=== PATIENT | male | born 1965 | race Caucasian/White ===

== ENCOUNTER 2021-05-01 23:00 | Observation (INO) ==
[2021-05-01] MEDS ORDERED: Lactated Ringers 1000 ml BAG 1,000 ML IV ONE (23:52)
[2021-05-02 00:13] LABS: ABS Eosinophils 0.1 10^3/ul (0-0.6); ABS Lymphocytes 0.7 10^3/ul (1.0-4.8); ABS Monocytes 0.3 10^3/ul (0-0.8); ABS Neutrophils 3.4 10^3/ul (1.5-7.7); Eosinophil % 2.6 %; Hematocrit 41 % (42-52); Hemoglobin 14.1 g/dL (14.0-18.0); Lymphocyte % 15.3 %; Mean Corpuscular HGB Conc 35 g/dL (31-36); Mean Corpuscular Hemoglobin 32 pg (27-31); Mean Corpuscular Volume 91 fL (80-94); Mean Platelet Volume 7.8 fL (7.4-10.4); Nucleated Red Blood Cells % 0.1; Platelet Count 187 10^3/uL (150-450); Red Blood Count 4.47 10^6 /uL (4.18-5.48); Red Cell Distribution Width 13 % (10-15); White Blood Count 4.5 10^3/uL (3.5-10.8)
[2021-05-02 00:30] LABS: Albumin/Globulin Ratio 2.2 (1-3); Calcium 8.8 mg/dL (8.6-10.3); Globulin 1.8 g/dL (2-4); Potassium 3.8 mmol/L (3.5-5.0); Total Bilirubin 0.5 mg/dL (0.2-1.0); Total Protein 5.8 g/dL (6.4-8.9); eGFR CKD-EPI 97.6 (>60)
[2021-05-02] MEDS ORDERED: LORazepam 2 mg VIAL 1 ml IV PUSH ONE (00:52)
[2021-05-02] MEDS ORDERED: Lorazepam PYXIS KEY PRN (00:52)
[2021-05-02 01:12] LABS: TSH Ultra Thyroid Stim Horm 1.53 mcIU/mL (0.34-5.60)
[2021-05-02 01:14] LABS: Free T4 0.72 ng/dL (0.61-1.12)
[2021-05-02 02:34] LABS: Urine Appearance Clear; Urine Bilirubin Negative (Negative); Urine Blood Negative (Negative); Urine Color Amber; Urine Glucose Negative (Negative); Urine Ketones Negative (Negative); Urine Nitrite Negative (Negative); Urine Protein Negative (Negative); Urine Specific Gravity 1.006 (1.002-1.030); Urine Urobilinogen Negative (Negative)
[2021-05-02 02:41] LABS: Rapid COVID-19 Molecular Undetected (Undetected)
[2021-05-02] MEDS: Enoxaparin 40 MG/0.4 ML SYR SUBCUT SCH (04:27)
[2021-05-02] MEDS: Carbidopa/Levodop 25/100 MG TAB PO SCH ×4 (09:29→20:53)
[2021-05-02] MEDS: ENTACAPONE 200 MG PO SCH ×4 (11:24→20:53)
[2021-05-03] MEDS: ENTACAPONE 200 MG PO SCH ×6 (01:27→21:45)
[2021-05-03] MEDS: Enoxaparin 40 MG/0.4 ML SYR SUBCUT SCH (04:19)
[2021-05-03 06:09] LABS: ABS Eosinophils 0.1 10^3/ul (0-0.6); ABS Lymphocytes 0.8 10^3/ul (1.0-4.8); ABS Monocytes 0.3 10^3/ul (0-0.8); ABS Neutrophils 4.5 10^3/ul (1.5-7.7); Eosinophil % 1.6 %; Hematocrit 45 % (42-52); Hemoglobin 15.6 g/dL (14.0-18.0); Lymphocyte % 13.6 %; Mean Corpuscular HGB Conc 35 g/dL (31-36); Mean Corpuscular Hemoglobin 32 pg (27-31); Mean Corpuscular Volume 91 fL (80-94); Platelet Count 199 10^3/uL (150-450); Red Blood Count 4.96 10^6 /uL (4.18-5.48); Red Cell Distribution Width 13 % (10-15); White Blood Count 5.6 10^3/uL (3.5-10.8)
[2021-05-03 06:29] LABS: Calcium 9.4 mg/dL (8.6-10.3); Potassium 3.8 mmol/L (3.5-5.0); eGFR CKD-EPI 103.5 (>60)
[2021-05-03] MEDS: Carbidopa/Levodop 25/100 MG TAB PO SCH ×4 (09:33→21:45)
[2021-05-04] MEDS: Carbidopa/Levodop 25/100 MG TAB PO SCH ×4 (00:46→13:29)
[2021-05-04] MEDS: ENTACAPONE 200 MG PO SCH ×4 (00:46→13:29)
[2021-05-04] MEDS ORDERED: Enoxaparin 40 MG/0.4 ML SYR SUBCUT SCH (01:00)
[2021-05-04] MEDS ORDERED: NS 0.9% 500 ml BAG 500 ML IV SCH (02:00)
[2021-05-04 12:12] LABS: Vitamin D Total 25(OH) 19.9 ng/mL (20-50)
[2021-05-04 12:13] VITALS: BP 113/71
[2021-05-04] MEDS ORDERED: Carbidopa/Levodop CR 50/200 TAB.CR PO SCH (21:00)
== END 2021-05-04 15:10 | disposition home or self-care (01) ==
LOC: ED 23:00 → EDHOLD 23:00 → SUATTDRO 05-02 03:58 → MEDTELE 05-02 13:44
PROVIDERS: ADMIT Internal Medicine; ATTEND Internal Medicine

== ENCOUNTER 2022-07-31 10:43 | Observation (INO) ==
[2022-07-31] MEDS ORDERED: NS 0.9% 1000 ml BAG 1,000 ML IV ONE (11:26)
[2022-07-31] MEDS ORDERED: LORazepam 2 mg VIAL 1 ml ONE (11:44)
[2022-07-31] MEDS ORDERED: LORazepam 2 mg VIAL 1 ml IM ONE (11:52)
[2022-07-31 13:06] LABS: Urine Appearance Clear; Urine Bilirubin Negative (Negative); Urine Blood Negative (Negative); Urine Color Amber; Urine Glucose Negative (Negative); Urine Ketones Trace (Negative); Urine Nitrite Negative (Negative); Urine Protein Negative (Negative); Urine Specific Gravity 1.012 (1.002-1.030); Urine Urobilinogen Negative (Negative)
[2022-07-31 13:07] LABS: ABS Lymphocytes 0.5 10^3/ul (1.0-4.8); ABS Monocytes 0.5 10^3/ul (0-0.8); ABS Neutrophils 7.9 10^3/ul (1.5-7.7); Eosinophil % 0.2 %; Hematocrit 42 % (42-52); Hemoglobin 14.4 g/dL (14.0-18.0); Lymphocyte % 5.5 %; Mean Corpuscular HGB Conc 34 g/dL (31-36); Mean Corpuscular Hemoglobin 31 pg (27-31); Mean Corpuscular Volume 92 fL (80-94); Mean Platelet Volume 8.1 fL (7.4-10.4); Platelet Count 166 10^3/uL (150-450); Red Blood Count 4.59 10^6 /uL (4.18-5.48); Red Cell Distribution Width 13 % (10-15); White Blood Count 8.9 10^3/uL (3.5-10.8)
[2022-07-31 13:21] LABS: Urine Benzodiazepine Screen Presumptive Positive (None Detect); Urine Buprenorphine Screen None Detected (None Detect); Urine Cannabinoids Screen Presumptive Positive (None Detect); Urine Fentanyl Screen None Detected (None Detect); Urine Hydrocodone Screen None Detected (None Detect); Urine Opiates Screen None Detected (None Detect)
[2022-07-31 13:44] LABS: ALT 6 U/L (7-52); AST 55 U/L (13-39); Albumin 4.4 g/dL (3.2-5.2); Albumin/Globulin Ratio 2.4 (1-3); Alcohol, S < 13 mg/dL (<13); Alkaline Phosphatase 56 U/L (35-149); Anion Gap 4 mmol/L (2-11); Blood Urea Nitrogen 14 mg/dL (6-24); CO2 Carbon Dioxide 30 mmol/L (22-32); Chloride 104 mmol/L (101-111); Creatine Kinase 1798 U/L (10-223); Creatinine, Serum 0.89 mg/dL (0.67-1.17); Globulin 1.8 g/dL (2-4); Glucose 105 mg/dL (70-100); Lipase 14 U/L (11.0-82.0); Potassium 3.7 mmol/L (3.5-5.0); Salicylate < 2.50 mg/dL (<30); Sodium 138 mmol/L (135-145); Total Protein 6.2 g/dL (6.4-8.9)
[2022-07-31 13:49] LABS: TSH Ultra Thyroid Stim Horm 3.49 mcIU/mL (0.34-5.60)
[2022-07-31 13:51] LABS: Acetaminophen < 15 mcg/mL
[2022-07-31] MEDS ORDERED: ENTACAPONE 200 MG PO ONE (14:01)
[2022-07-31] MEDS ORDERED: Carbidopa/Levodop 25/100 MG TAB PO ONE (14:01)
[2022-07-31] MEDS ORDERED: Senna TAB 8.6 mg TAB PO PRN ×2 (15:46→16:01)
[2022-07-31] MEDS ORDERED: Carbidopa/Levodop 25/100 MG TAB PO SCH (18:00)
[2022-07-31] MEDS: Enoxaparin 40 MG/0.4 ML SYR SUBCUT SCH (18:12)
[2022-07-31] MEDS ORDERED: Carbidopa/Levodopa ODT (NF) 25/100 ODT PO SCH (19:00)
[2022-07-31] MEDS ORDERED: Carbidopa/Levodopa ODT (NF) 25/100 ODT SL SCH ×2 (19:17→19:18)
[2022-07-31] MEDS: Carbidopa/Levodop CR 50/200 TAB.CR PO SCH (22:29)
[2022-08-01] MEDS: Carbidopa/Levodopa ODT (NF) 25/100 ODT SL SCH ×6 (01:34→21:37)
[2022-08-01 07:06] LABS: ABS Eosinophils 0.1 10^3/ul (0-0.6); ABS Lymphocytes 0.6 10^3/ul (1.0-4.8); ABS Monocytes 0.4 10^3/ul (0-0.8); ABS Neutrophils 3.1 10^3/ul (1.5-7.7); Eosinophil % 2.1 %; Hematocrit 42 % (42-52); Hemoglobin 14.3 g/dL (14.0-18.0); Lymphocyte % 14.3 %; Mean Corpuscular HGB Conc 34 g/dL (31-36); Mean Corpuscular Hemoglobin 32 pg (27-31); Mean Corpuscular Volume 93 fL (80-94); Mean Platelet Volume 8.4 fL (7.4-10.4); Platelet Count 159 10^3/uL (150-450); Red Blood Count 4.51 10^6 /uL (4.18-5.48); Red Cell Distribution Width 13 % (10-15); White Blood Count 4.1 10^3/uL (3.5-10.8)
[2022-08-01 07:19] LABS: Calcium 8.4 mg/dL (8.6-10.3); Potassium 3.8 mmol/L (3.5-5.0)
[2022-08-01 07:25] LABS: Creatinine, Serum 0.81 mg/dL (0.67-1.17); eGFR CKD-EPI 102.8 (>60)
[2022-08-01] MEDS: Carbidopa/Levodop CR 50/200 TAB.CR PO SCH ×2 (10:03→21:32)
[2022-08-01 11:19] LABS: Urine Appearance Clear; Urine Bilirubin Negative (Negative); Urine Blood Negative (Negative); Urine Color Amber; Urine Glucose Negative (Negative); Urine Ketones Trace (Negative); Urine Nitrite Negative (Negative); Urine Protein Negative (Negative); Urine Specific Gravity 1.018 (1.002-1.030); Urine Urobilinogen Negative (Negative)
[2022-08-01 16:43] LABS: Albumin 3.8 g/dL (3.2-5.2); Albumin/Globulin Ratio 2.5 (1-3); Direct Bilirubin 0.2 mg/dL (0.03-0.18); Globulin 1.5 g/dL (2-4); Indirect Bilirubin 0.6 mg/dL (0.3-1.0); Total Bilirubin 0.8 mg/dL (0.2-1.0); Total Protein 5.3 g/dL (6.4-8.9)
[2022-08-01] MEDS: Enoxaparin 40 MG/0.4 ML SYR SUBCUT SCH (16:58)
[2022-08-01] MEDS ORDERED: Enoxaparin 80 MG/0.8 ML SYR SUBCUT SCH (17:00)
[2022-08-01] MEDS ORDERED: Heparin DRIP 25,000 UNITS BAG 25,000 UNITS/500 ML BAG IV SCH (17:00)
[2022-08-01 17:19] LABS: ABS Eosinophils 0.1 10^3/ul (0-0.6); ABS Lymphocytes 0.7 10^3/ul (1.0-4.8); ABS Monocytes 0.3 10^3/ul (0-0.8); ABS Neutrophils 3.7 10^3/ul (1.5-7.7); Hematocrit 46 % (42-52); Hemoglobin 15.5 g/dL (14.0-18.0); Lymphocyte % 14.2 %; Mean Corpuscular HGB Conc 34 g/dL (31-36); Mean Corpuscular Hemoglobin 31 pg (27-31); Mean Corpuscular Volume 93 fL (80-94); Mean Platelet Volume 7.8 fL (7.4-10.4); Nucleated Red Blood Cells % 0.1; Platelet Count 166 10^3/uL (150-450); Red Blood Count 4.96 10^6 /uL (4.18-5.48); Red Cell Distribution Width 14 % (10-15); White Blood Count 4.9 10^3/uL (3.5-10.8)
[2022-08-01 17:44] LABS: Creatinine, Serum 0.82 mg/dL (0.67-1.17); eGFR CKD-EPI 102.5 (>60)
[2022-08-02] MEDS: Carbidopa/Levodopa ODT (NF) 25/100 ODT SL SCH ×4 (01:48→13:32)
[2022-08-02 06:16] LABS: ABS Eosinophils 0.2 10^3/ul (0-0.6); ABS Monocytes 0.4 10^3/ul (0-0.8); ABS Neutrophils 3.4 10^3/ul (1.5-7.7); Eosinophil % 3.7 %; Hematocrit 48 % (42-52); Hemoglobin 16.4 g/dL (14.0-18.0); Lymphocyte % 19.5 %; Mean Corpuscular HGB Conc 34 g/dL (31-36); Mean Corpuscular Hemoglobin 32 pg (27-31); Mean Corpuscular Volume 93 fL (80-94); Mean Platelet Volume 8.4 fL (7.4-10.4); Platelet Count 177 10^3/uL (150-450); Red Blood Count 5.17 10^6 /uL (4.18-5.48); Red Cell Distribution Width 14 % (10-15); White Blood Count 4.9 10^3/uL (3.5-10.8)
[2022-08-02 06:34] LABS: Calcium 8.7 mg/dL (8.6-10.3); Creatinine, Serum 0.88 mg/dL (0.67-1.17); Magnesium 1.9 mg/dL (1.9-2.7); eGFR CKD-EPI 100.3 (>60)
[2022-08-02] MEDS ORDERED: Magnesium Sulfate 2 gm BAG 2 GM/50 ML BAG IVPB ONE (07:45)
[2022-08-02] MEDS: Carbidopa/Levodop CR 50/200 TAB.CR PO SCH (08:31)
[2022-08-02 11:21] VITALS: BP 93/62
== END 2022-08-02 15:00 | disposition home or self-care (01) ==
LOC: EDHOLD 10:43 → ED 10:43 → SUATTDRO 15:46 → MEDTELE 20:58
PROVIDERS: ADMIT Internal Medicine; ATTEND Hospitalist

== ENCOUNTER 2022-12-03 03:47 | Inpatient (IN) ==
[2022-12-03 04:40] LABS: ABS Basophils 0.1 10^3/uL (0.0-0.1); ABS Eosinophils 0.1 10^3/uL (0.0-0.5); ABS Lymphocytes 0.8 10^3/uL (1.0-4.8); ABS Monocytes 0.5 10^3/uL (0.0-1.1); ABS Neutrophils 6.2 10^3/uL (1.5-7.6); Eosinophil % 1.3 %; Hematocrit 42.3 % (38-53); Hemoglobin 14.8 g/dL (13.2-16.3); Lymphocyte % 10.2 %; Mean Corpuscular Hemoglobin 31.5 pg (27-33); Mean Corpuscular Hgb Conc 35.1 g/dL (31-36); Mean Corpuscular Volume 89.9 fL (80-97); Mean Platelet Volume 7.5 fL (7.5-11.2); Nucleated Red Blood Cells % 0.1 /100 WBC (0.0-0.4); Platelet Count 191 10^3/uL (150-450); Red Blood Count 4.71 10^6/uL (4.06-5.63); Red Cell Distribution Width 13.4 % (12-17); White Blood Count 7.6 10^3/uL (3.6-10.2)
[2022-12-03 05:16] LABS: ALT 4 U/L (7-52); AST 27 U/L (13-39); Albumin 4.3 g/dL (3.2-5.2); Albumin/Globulin Ratio 1.9 (1-3); Alkaline Phosphatase 66 U/L (35-149); Anion Gap 6 mmol/L (2-16); Blood Urea Nitrogen 15 mg/dL (6-24); CO2 Carbon Dioxide 26 mmol/L (22-32); Calcium 8.9 mg/dL (8.6-10.3); Chloride 105 mmol/L (101-111); Creatinine, Serum 0.96 mg/dL (0.67-1.17); Globulin 2.3 g/dL (2-4); Glucose 113 mg/dL (70-100); Potassium 3.4 mmol/L (3.5-5.0); Sodium 137 mmol/L (135-145); Total Protein 6.6 g/dL (6.4-8.9); eGFR CKD-EPI 91.6 (>60)
[2022-12-03 05:43] LABS: Acetaminophen < 15 mcg/mL; Alcohol, S < 13 mg/dL (<13); Salicylate < 2.50 mg/dL (<30)
[2022-12-03] MEDS ORDERED: Potassium Chlor 20 meq TAB.ER PO ONE (06:13)
[2022-12-03 16:08] LABS: Vitamin B12 373 pg/mL (180-914)
[2022-12-03 17:38] LABS: C Reactive Protein 4.16 mg/L (<8.01)
[2022-12-03 17:53] LABS: High Sens Troponin Baseline 7 pg/mL (<20)
[2022-12-03] MEDS: Carbidopa/Levodop 25/100 MG TAB PO SCH ×2 (18:24→21:39)
[2022-12-03] MEDS: Carbidopa/Levodop CR 50/200 TAB.CR PO SCH (21:39)
[2022-12-04] MEDS: Carbidopa/Levodop 25/100 MG TAB PO SCH ×8 (00:06→20:46)
[2022-12-04 06:18] LABS: Calcium 8.7 mg/dL (8.6-10.3); Creatinine, Serum 0.97 mg/dL (0.67-1.17); Potassium 3.8 mmol/L (3.5-5.0); eGFR CKD-EPI 90.5 (>60)
[2022-12-04 06:45] LABS: Urine Appearance Clear; Urine Bilirubin Negative (Negative); Urine Blood Negative (Negative); Urine Color Colorless; Urine Glucose 3+(>=500 mg/dL) (Negative); Urine Ketones Negative (Negative); Urine Nitrite Negative (Negative); Urine Protein Negative (Negative); Urine Specific Gravity 1.008 (1.002-1.030); Urine Urobilinogen Negative (Negative)
[2022-12-04 07:13] LABS: ABS Eosinophils 0.2 10^3/uL (0.0-0.5); ABS Lymphocytes 0.7 10^3/uL (1.0-4.8); ABS Monocytes 0.4 10^3/uL (0.0-1.1); ABS Neutrophils 3.6 10^3/uL (1.5-7.6); Eosinophil % 3.8 %; Hematocrit 40.7 % (38-53); Hemoglobin 14.2 g/dL (13.2-16.3); Lymphocyte % 14.6 %; Mean Corpuscular Hemoglobin 31.8 pg (27-33); Mean Corpuscular Hgb Conc 34.9 g/dL (31-36); Mean Corpuscular Volume 91.3 fL (80-97); Mean Platelet Volume 8.1 fL (7.5-11.2); Nucleated Red Blood Cells % 0.1 /100 WBC (0.0-0.4); Platelet Count 179 10^3/uL (150-450); Red Blood Count 4.45 10^6/uL (4.06-5.63); White Blood Count 4.9 10^3/uL (3.6-10.2)
[2022-12-04 07:14] LABS: Urine Benzodiazepine Screen None Detected (None Detect); Urine Cannabinoids Screen None Detected (None Detect); Urine Opiates Screen None Detected (None Detect)
[2022-12-04] MEDS: Carbidopa/Levodop CR 50/200 TAB.CR PO SCH ×2 (09:33→20:46)
[2022-12-04] MEDS: ENTACAPONE 200 MG PO SCH (09:34)
[2022-12-05] MEDS: Carbidopa/Levodop 25/100 MG TAB PO SCH ×8 (01:04→22:14)
[2022-12-05] MEDS: Carbidopa/Levodop CR 50/200 TAB.CR PO SCH ×2 (08:22→20:54)
[2022-12-05] MEDS: ENTACAPONE 200 MG PO SCH ×5 (08:36→22:14)
[2022-12-05] MEDS ORDERED: Carbidopa/Levodop 25/100 MG TAB PO SCH (14:00)
[2022-12-06] MEDS: Carbidopa/Levodop 25/100 MG TAB PO SCH ×5 (02:31→13:45)
[2022-12-06] MEDS: ENTACAPONE 200 MG PO SCH ×6 (02:31→13:46)
[2022-12-06] MEDS: Carbidopa/Levodop CR 50/200 TAB.CR PO SCH (08:27)
[2022-12-06 15:06] VITALS: BP 106/68
== END 2022-12-06 16:10 | disposition home or self-care (01) | DRG 52 ==
LOC: EDHOLD 03:47 → ED 03:47 → MEDTELE 17:42 → SUATTDRO 12-05 15:30
PROVIDERS: ADMIT Internal Medicine; ATTEND Internal Medicine